=== PATIENT | female | born 2000 | race Caucasian/White ===

== ENCOUNTER 2024-10-18 09:38 | Outpatient (CLI) | payer BC, SELFPAY | END 2024-10-18 09:39 | disposition home or self-care (01) | PROVIDERS: Visit Provider Obstetrics & Gynecology | DX: Z12.4 Encounter for screening for malignant neoplasm of cervix (principal); Z13.6 Encounter for screening for cardiovascular disorders | CPT/HCPCS: 80061; 87624; 87625; 88141; 88142 ==